=== PATIENT | female | born 1985 | race Caucasian/White ===

== ENCOUNTER → 2016-12-21 14:27 | Observation (INO) ==
--- NOTE | 2016-12-21 13:15 | OB/GYN Progress Note ---
Date of Encounter: 12/21/16 Time of Encounter: 13:09 - Assessment and Plan (1) PIH ( induced hypertension) Current Visit: Yes Status: Acute Elevated blood pressure: 150s/90s x 2, clinically asymptomatic, PIH workup negative. Being discharged on Labetalol; appointment scheduled for Monday 12/25 for evaluation and follow-up with OB. Qualifiers: Trimester: third trimester Qualified Code(s): O13.3 - Gestational [ -induced] hypertension without significant proteinuria, third trimester Subjective - Subjective Principal diagnosis: PIH Evaluation Interval history: Kenia Mendoza, 30 y/o, , at 38+1, presents to labor and delivery for induced hypertension evaluation. Patient does have history of hypertension prior to but while , patient does not have elevated blood pressure; today is her first elevated reading during . 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 Pt is GBS positive. Blood type - O positive. Antepartum ROS: movement normal, no loss of fluid, no vaginal bleeding Objective - Exam FHR: auscultation normal, category 1 Auscultation: bilateral: normal Abdomen: Present: gravid Uterus: Absent: tenderness Attestation: My signature below is to certify that this patient is under my care and that I have had a [id number] encounter with this patient. Kade Lara CNM
[2016-12-21 13:23] LABS: Basophils % 0.3 %; Eosinophils # 0.1 K/mcL (0.0-0.6); Eosinophils % 0.8 %; Hematocrit 34.7 % (35.3-44.9); Immature Granulocytes % 0.4 % (0-4); Lymphocytes # 2.5 K/mcL (0.6-4.6); Lymphocytes % 24.4 %; Mean Corpuscular HGB Conc 31.7 g/dL (31.6-35.5); Mean Corpuscular Hemoglobin 24.8 pg (28.0-33.3); Mean Corpuscular Volume 78.2 fL (83.0-100.0); Mean Platelet Volume 12.7 fL (9.4-12.4); Monocytes % 9.8 %; Neutrophils # 6.5 K/mcL (1.6-8.9); Platelet Count 219 K/mcL (140-400); Red Blood Count 4.44 M/mcL (3.82-4.97); Red Cell Distribution Width 15.2 % (11.5-14.5); Segmented Neutrophils % 64.3 %
[2016-12-21 13:33] LABS: Amphetamine Screen,Urine Negative ng/mL (Cutoff=1000); Barbiturate Screen,Urine Negative ng/mL (Cutoff=200); Benzodiazepines Screen,Urine Negative ng/mL (Cutoff=200); Cannabinoid Screen,Urine Negative ng/mL (Cutoff = 50); Cocaine Screen,Urine Negative ng/mL (Cutoff= 300); Creatinine,Urine 39 mg/dL; Opiate Screen,Urine Negative ng/mL (Cutoff=300); Phencyclidine Screen,Urine Negative ng/mL (Cutoff=25); Protein/Creatinine Ratio,Urine 0.18 mg/mg (0-0.20)
[2016-12-21 13:36] LABS: Alanine Aminotransferase 37 Units/L (0-55); Aspartate Amino Transferase 20 Units/L (5-34); BUN/Creatinine Ratio 11 (6-26); Blood Urea Nitrogen 7 mg/dL (7-20); Lactate Dehydrogenase 163 Units/L (159-327); Uric Acid 5.5 mg/dL (2.6-6.0); eGFR For African Americans > 60 (> 60); eGFR For Non-African Americans > 60 (> 60)
== END | disposition home or self-care (01) ==
LOC: 1NENULAB
PROVIDERS: ADMIT Obstetrics & Gynecology; ATTEND Obstetrics & Gynecology

== ENCOUNTER 2016-12-26 05:58 | Inpatient (IN) ==
[2016-12-26] MEDS ORDERED: Famotidine 20 MG/2 ML VIAL IVP PRN (06:04)
[2016-12-26] MEDS ORDERED: Naloxone 0.4 MG/ML INJ IVP PRN (06:04)
[2016-12-26] MEDS ORDERED: miSOPROStol 100 MCG TABLET PO PRN (06:07)
[2016-12-26] MEDS ORDERED: Penicillin G Potassium 5,000,000 UNIT in D5% in Water (Mini-Bag+) 100 ML IVPB ONE (06:07)
[2016-12-26] MEDS ORDERED: Ringers Solution, Lactated 1,000 ML IVC SCH (06:15)
[2016-12-26] MEDS ORDERED: D5% in 0.45% NACL 1,000 ML IVC SCH (06:15)
[2016-12-26 06:52] LABS: Basophils % 0.4 %; Eosinophils # 0.1 K/mcL (0.0-0.6); Eosinophils % 0.8 %; Hematocrit 38.1 % (35.3-44.9); Hemoglobin 11.9 g/dL (11.5-15.4); Immature Granulocytes % 0.3 % (0-4); Lymphocytes # 1.9 K/mcL (0.6-4.6); Lymphocytes % 21.2 %; Mean Corpuscular HGB Conc 31.2 g/dL (31.6-35.5); Mean Corpuscular Hemoglobin 24.9 pg (28.0-33.3); Mean Corpuscular Volume 79.7 fL (83.0-100.0); Mean Platelet Volume 12.6 fL (9.4-12.4); Monocytes # 0.7 K/mcL (0.0-1.3); Monocytes % 7.9 %; Neutrophils # 6.3 K/mcL (1.6-8.9); Platelet Count 208 K/mcL (140-400); Red Blood Count 4.78 M/mcL (3.82-4.97); Red Cell Distribution Width 15.1 % (11.5-14.5); Segmented Neutrophils % 69.4 %
--- NOTE | 2016-12-26 06:54 | OB/GYN History & Physical ---
Date of Encounter: 12/26/16 Time of Encounter: 06:51 Assessment and Plan (1) 38 weeks gestation of Current visit: Yes Status: Acute (2) High risk , antepartum Current visit: Yes Status: Acute (3) LGA (large for gestational age) fetus affecting management of mother Current visit: Yes Status: Acute Qualifiers: Fetus number: single or unspecified fetus Trimester: third trimester Qualified Code(s): O36.63X0 - Maternal care for excessive growth, third trimester, not applicable or unspecified (4) Two vessel umbilical cord in [place] , antepartum Current visit: Yes Status: Acute (5) Chronic hypertension affecting Current visit: Yes Status: Acute (6) Gestational diabetes Current visit: No Status: Acute Qualifiers: Gestational diabetes mellitus control: diet-controlled Trimester: third trimester Qualified Code(s): O24.410 - Gestational diabetes mellitus in , diet controlled (7) Obesity affecting in third trimester Current visit: No Status: Chronic History of Present Illness Chief complaint: IOL HPI: Ms. Mendoza is a 31-year-old at 38 weeks and 6 days for induction of labor due to multiple risk factors including two-vessel umbilical cord, chronic hypertension on labetalol, short interval between pregnancies, obesity with a BMI of 45, group B strep carrier, gestational diabetes not diagnosed until 34 weeks due to noncompliant with testing, LGA with fundal height of 42 cm. An ultrasound performed 2 weeks ago had normal amniotic fluid and growth was in the 83%, 7 lbs. 14 oz. The patient reports that the fetus is active and she denies any loss of fluid or vaginal bleeding. She reports having intervals of strong cramping that she has had of and on. She has not had any regular contractions that she has felt. She has been very nauseous with vomiting. She is very anxious about this delivery. She reports that her blood sugars have all been in the normal range since her last visit except one reading which was a fasting of 97. Her states that she doesn't check her blood sugars She denies any blurry vision, CP, SOB, fevers, or chills. She plans on breast feeding. She had a NST 12/25 with Category 2 tracings and variables.BPP 8 GBS + Blood Type: O+ Rubella Immune Hep B Non-Reactive Varicella Immune Past Med Surg Social Fam HX - Past Medical History Medical history: GERD, hypertension Psychiatric history: depression - Past Surgical History Surgical History: other - Social History Smoking Status: Never smoker Smokeless Tobacco Status: No Alcohol use: none Drug use: none - Family History Mother Adopted: No Hx Family Cardiac Disorders: No Hx Family Respiratory Disorders: No Hx Family Cancer: Yes (ovarian) Hx Family GI Disorders: No Hx Family Endocrine Disorder: No Hx Family Neuromuscular Disorders: No Hx Family Neurologic Disorders: Yes (CVA) Hx Family HEENT Disorders: No Hx Family Autoimmune Disorders: No Hx Family Reproductive Disorders: No Hx Family Psychosocial Disorders: No Hx Family Medical Disorders: No Obstetrical History - Pregnancies : 4 Medications and Allergies Vit/FA 1 each PO DAILY tablet 01/05/16 [Rx] Ferrous Sulfate 325 mg PO DAILY 12/21/16 [History] Labetalol [Trandate] 200 mg PO BID #60 tablet 12/21/16 [Rx] Zofran ODT 8 mg SL Q4-6H PRN 12/21/16 [History] 3 Allergy/AdvReac Type Severity Reaction Status Date / Time metoclopramide [From Reglan] Allergy Anaphylaxis Verified 06/24/15 14:29 Review of System OB - Constitutional Constitutional ROS IM: no chills, no fever(s), no headache(s) Results Result Diagrams: 12/26/16 06:43 All other labs normal. - VTE Reasons for not Prescribing Prophylaxis: Treatment not Indicated - Low risk for VTE - Attending Attestation I examined this patient and my medical decision-making was reviewed with the Resident Physician. I agree with the documented findings, disposition and treatment plan as described except to the extent set forth below. Please see H+ P from eCW visit 12/25/16
[2016-12-26] MEDS ORDERED: Ondansetron 4 MG/2 ML VIAL IVP PRN ×2 (07:17→13:46)
--- NOTE | 2016-12-26 09:07 | OB Labor Progress Note ---
Date of Encounter: 12/26/16 Time of Encounter: 09:04 Labor Progress Note - Subjective Subjective: The patient has been given Cytotec, 25 g her first dose. heart rate tracing has had some accelerations as well as a few small variables. The patient is aware that she may need to have a if there is persistent and recurrent variables. She reports that she has contractions but they are not uncomfortable. She denies any vaginal bleeding or loss of fluid - Vital Signs Vital Signs: Afebrile, vital signs stable - Cervix Cervix: 4/70/-2, vtx - Heart Tones Heart Tones: 130s to 140s baseline, CAT 1 - [place]: Irregular every 5-8 minutes - Interventions Interventions: 38 week 6 day IUP with multiple comorbidities for induction of labor - Plan Plan: Induction of labor starting with 25 mics of by mouth Cytotec. Patient is aware that she has had some variable decelerations that have been short and small and that she is high risk for needing a . She is understanding of this and wishes to proceed with this before it is an emergency if necessary. She is also wanting her tubes tied for permanent sterilization. What sugar this morning on fingerstick at bedside is 140
[2016-12-26] MEDS ORDERED: *HR* FentaNYL (PF) 100 MCG/2 ML VIAL ONE (09:26)
[2016-12-26] MEDS ORDERED: *HR* Morphine Sulfate/PF 5 MG/10 ML AMPUL ONE (09:26)
[2016-12-26] MEDS ORDERED: EPHEDrine 50 MG/ML VIAL ONE (09:27)
[2016-12-26] MEDS ORDERED: Ondansetron 4 MG/2 ML VIAL ONE (09:27)
[2016-12-26] MEDS ORDERED: *HR* Oxytocin 10 UNIT/ML VIAL IM ONE (09:27)
--- NOTE | 2016-12-26 09:30 | Anesthesia Evaluation PreOp ---
Date of Encounter: 12/26/16 Time of Encounter: 09:28 - Past History Planned Operation: Cardiac History: HTN, Arrhythmia (H/O SVTG) Pulmonary History: Asthma QUALITY PROCESS AUDITOR History: Denies Any Significant HX Other Medical History: Diabetes Type II (gestational), GERD, Other (obesity BMI= 43.5) Anesthesia History: No Prior Anesthetic Complications, Past Anesthesia : Yes (, IUP 38+6 weeks) Alcohol Use: none Drug use: none Medications and Allergies Vit/FA 1 each PO DAILY tablet 01/05/16 [Rx] Ferrous Sulfate 325 mg PO DAILY 12/21/16 [History] Labetalol [Trandate] 200 mg PO BID #60 tablet 12/21/16 [Rx] Zofran ODT 8 mg SL Q4-6H PRN 12/21/16 [History] 3 Allergy/AdvReac Type Severity Reaction Status Date / Time metoclopramide [From Reglan] Allergy Anaphylaxis Verified 06/24/15 14:29 - Meds/Allergy Pre-op Review Medications Reviewed: Yes Allergies Reviewed: Yes Beta Blockers on Current Med List: Yes If Beta Blockers taken, Date/Time (Last Dose taken): 12/21/2016 Anesthesia Results - Labs 12/26/16 06:43 Anesthesia Exam 3 Temp BP Pulse Resp Height: 5'7''/1.7 m Weight: 277 lbs/126 kg NPO (# of Hours): 3.5 Pain Scale: 0 Pain Scale Used: Numeric (1 - 10) - HEENT Pupil (Motor): EOMI Mallampati: II Teeth: Normal Oral Opening: Greater than 3 - QUALITY PROCESS AUDITOR LOC: Oriented QUALITY PROCESS AUDITOR Motor: Normal RUE, Normal LUE, Normal RLE, Normal LLE, Normal Face QUALITY PROCESS AUDITOR Sensory: Normal: RUE, LUE, RLE, LLE, Face - Cardiac Rhythm: Regular Murmur: None - Pulmonary Breath Sounds: bilateral Clear Respiratory Effort: Symmetrical Anesthesia Assess/Plan ASA Score: 3 Modified Barronett Scale for Level of Consciousness: Cooperative, oriented, and tranquil Anesthetic Plan: Regional Monitoring Plan: Standard Monitors Recovery Plan: PACU
[2016-12-26] MEDS ORDERED: MetroNIDAZOLE 500 MG/100 ML 500 MG/100 ML BAG IVPB ONE (09:31)
[2016-12-26] MEDS ORDERED: CeFAZolin Pre 3,000 MG/100 ML 3,000 MG/100 ML BAG IVPB ONE (09:33)
--- NOTE | 2016-12-26 09:42 | OB Labor Progress Note ---
Date of Encounter: 12/26/16 Time of Encounter: 09:40 Labor Progress Note - Subjective Subjective: The patient reports that the contractions are starting to be fairly strong after the Cytotec - Vital Signs Vital Signs: Afebrile, vital signs stable - Cervix Cervix: 4/70/-2 - Heart Tones Heart Tones: 140s to 150s baseline, CAT 2. There was a over a minute long variable to the 70s. Now return to baseline - [place]: Contractions every 2-4 minutes - Interventions Interventions: 38 week 6 day IUP with multiple comorbidities with nonreassuring heart rate tracing. Patient has undesired fertility. - Plan Plan: Anesthesia notified of pending need for a section. The patient would rather go for a before distant emergency. She does state she wants her tubes tied. She has given informed consent for primary and a tubal ligation.
[2016-12-26] MEDS ORDERED: Penicillin G Potassium 2,500,000 UNIT in D5% in Water 100 ML IVPB SCH (10:00)
[2016-12-26] MEDS ORDERED: Ringers Solution, Lactated 1,000 ML ONE (10:00)
[2016-12-26] MEDS ORDERED: *HR* HYDROmorphone (PF) 1 MG/ML SYRINGE IVP PRN ×2 (10:21→12:39)
[2016-12-26] MEDS ORDERED: Acetaminophen IV 1,000 MG/100 ML INFUS..BTL IVPB ONE (10:22)
[2016-12-26 11:10] LABS: Amphetamine Screen,Urine Negative ng/mL (Cutoff=1000); Barbiturate Screen,Urine Negative ng/mL (Cutoff=200); Benzodiazepines Screen,Urine Negative ng/mL (Cutoff=200); Cannabinoid Screen,Urine Negative ng/mL (Cutoff = 50); Cocaine Screen,Urine Negative ng/mL (Cutoff= 300); Opiate Screen,Urine Negative ng/mL (Cutoff=300); Phencyclidine Screen,Urine Negative ng/mL (Cutoff=25)
[2016-12-26] MEDS ORDERED: *HR* Phenylephrine 10 MG/ML VIAL ONE (11:19)
--- NOTE | 2016-12-26 11:33 | OB/GYN Procedure Note ---
Section - Date of procedure: 12/26/16 Preop diagnosis: category 2 FHT tracing, desires sterilization Post-op diagnosis: same (Thick meconium, nuchal cord x2 and around waist, true knot x2) Procedure: section, primary low transverse, bilateral tubal ligation Surgeon: Galina Padilla Estimated blood loss (cc): 500 Anesthesiologist: Jason Pablo Site Specialist: Lino Warren Anesthesia Type: Spinal section complications: none Disposition: L&D Recovery Room Specimens: Placenta, Cord segment, Cord blood, Right tube segment, Left tube segment - Infant (s) A Delivery Date: 12/26/16 Infant Delivery Time: 10:24 Presentation: vertex Position: JOVITA Route of delivery: other Gender: Male Viability: Viable Pounds: 8 Ounces: 2 Gram Weight: 3.675 kg at 1 minute: 8 at 5 minutes: 9 Specimens collected: cord blood Placenta: spontaneous, uterine exploration Cord: nuchal cord (x2), true knot (x2), 2 umbilical vessels, nuchal reduced - Narrative Narrative: The patient was taken to the operating room and spinal anesthesia was given and tested to be adequate for abdominal and pelvic surgery. She was prepped and draped in the usual sterile fashion. Timeout was completed. A Pfannenstiel skin incision was made and sharply dissected down to the fascia. The fascia was incised in the midline and extended bilaterally. 2 straight Milton clamps were placed on the inferior fascial edge and the fascia was bluntly and sharply dissected away from the rectus muscles. This was repeated superiorly. The rectus muscles were bluntly dissected. Peritoneum was bluntly entered and then extended superiorly and inferiorly confirming there were no anterior adhesions. The Bladder blade was placed to protect the bladder. Vesicouterine peritoneum was incised and reflected inferiorly and the bladder blade was replaced to protect the bladder. A low transverse incision was then made through the lower uterine segment down to the amnion. This was bluntly extended bilaterally and then extended on each side with bandage scissors in a U fashion. The amnion was bluntly entered. Thick meconium was identified. This was followed by the vertex delivery of a viable and vigorous male weighing 8# 2oz with Apgars of 8/9. was placed on the maternal abdomen. The infant was bulb suctioned on the operating field. The cord was clamped and cut after a delay. Infant was handed to the nursery care team. The placenta was delivered spontaneous and intact then the uterine cavity was digitally palpated and wiped clean with a moist lap sponge. There were no placental remnants identified. Clamps were placed on the uterine angles and the uterine incision was closed using 0 Vicryl suture in a running, locking fashion. A second imbricating layer completed the uterine closure with 0 Vicryl suture. Good hemostasis achieved after a [id number] suture was placed in the midline. Attention was then placed on the fallopian tubes. The tubes and ovaries appeared grossly normal bilaterally. The left fallopian tube was grasped with a Margaret clamp and O-Plain suture was used to doubly ligate a loop of tube. The loop of tube was then excised and sent to pathology. Good hemostasis is noted at the tubal lumens. This was repeated for the patient's right side. Again good hemostasis noted at the tubal lumens. The uterus was then examined and noted to be hemostatic. The pelvis was then irrigated with a copious amount of sterile water. And again good hemostasis was identified. The peritoneal edges and rectus muscles were then examined and good hemostasis achieved. The fascia was then closed using an 0 PDS loop in a running nonlocking fashion. Subcutaneous tissue was irrigated with sterile water, good hemostasis was achieved. Subcutaneous layer was closed with 3-0 Monocryl in a running nonlocking fashion. The skin was then closed using and 4-0 Monocryl in a running subcuticular fashion. The incision was then reinforced with benzoin and Steri- Strips. Good hemostasis was noted. A Loyda dressing was placed. Estimated blood loss was 500cc. The Sosa was noted to be draining clear yellow urine at the end of the procedure. All sponge and instrument counts are correct at the end of the procedure. The patient was taken to the recovery room in stable condition.
[2016-12-26] MEDS ORDERED: *HR* Morphine 2 MG/ML SYRINGE IVP PRN (12:39)
--- NOTE | 2016-12-26 12:39 | Anesthesia Evaluation Post Op ---
Date of Encounter: 12/26/16 Time of Encounter: 12:38 - Lungs Lungs: Clear Ascult./Percussion - Airway Airway: Non-obstructed - Cardiovascular Regular Rate, Baseline Rhythm - Mental Status Mental Status: Alert & Oriented, Answers Appropriately - Pain Pain Scale: 2 Pain Scale used: Numeric (1 - 10) - Nausea Vomiting Nausea Vomiting: Not Present - Hydration Hydration: Ice chips, Sosa catheter - Discharge PostOp Status: Transfer Patient to floor
[2016-12-26] MEDS ORDERED: Sennosides 8.6 MG TABLET PO PRN (13:46)
[2016-12-26] MEDS ORDERED: Rho Immune Globulin 1,500 UNIT SYRINGE IM ONE (13:46)
[2016-12-26] MEDS ORDERED: Simethicone 80 MG TAB.CHEW PO PRN (13:46)
[2016-12-26] MEDS ORDERED: Oxytocin 20 units/ LR 1000 mL 20 UNIT/1,000 ML BAG IVC SCH (13:46)
[2016-12-26] MEDS: Ibuprofen 600 MG TABLET PO SCH ×2 (15:39→23:32)
[2016-12-26] MEDS: *HR* OxyCODONE/APAP 5/325 TABLET PO PRN (16:55)
[2016-12-27] MEDS: *HR* OxyCODONE/APAP 5/325 TABLET PO PRN ×4 (02:13→19:48)
[2016-12-27 06:12] LABS: Basophils % 0.4 %; Eosinophils # 0.1 K/mcL (0.0-0.6); Eosinophils % 0.5 %; Hematocrit 30.9 % (35.3-44.9); Immature Granulocytes % 0.3 % (0-4); Lymphocytes % 17.9 %; Mean Corpuscular HGB Conc 32.4 g/dL (31.6-35.5); Mean Corpuscular Hemoglobin 25.7 pg (28.0-33.3); Mean Corpuscular Volume 79.4 fL (83.0-100.0); Mean Platelet Volume 12.2 fL (9.4-12.4); Monocytes # 0.9 K/mcL (0.0-1.3); Monocytes % 8.2 %; Neutrophils # 8.2 K/mcL (1.6-8.9); Platelet Count 183 K/mcL (140-400); Red Blood Count 3.89 M/mcL (3.82-4.97); Red Cell Distribution Width 15.3 % (11.5-14.5); Segmented Neutrophils % 72.7 %
[2016-12-27] MEDS: Prenatal Vit/FA 1 EACH TABLET PO SCH (08:35)
--- NOTE | 2016-12-27 09:35 | OB/GYN Progress Note ---
Date of Encounter: 12/27/16 Time of Encounter: 09:33 - Assessment and Plan (1) Status post section Current Visit: Yes Status: Acute Routine post-op, care. Anticipate discharge tomorrow. (2) Breast feeding status of mother Current Visit: Yes Status: Acute support as needed. (3) Chronic hypertension affecting Current Visit: Yes Status: Acute Labetalol as ordered. Routine vital signs. (4) Gestational diabetes Current Visit: No Status: Acute Continue 2 hr post-prandial blood sugars. Schedule 2 hr GTT at visit. Qualifiers: Gestational diabetes mellitus control: diet-controlled Trimester: third trimester Qualified Code(s): O24.410 - Gestational diabetes mellitus in , diet controlled Subjective - Subjective Principal diagnosis: Status post primary section for Category II tracing. Interval history: Pt sitting up in bed. Pain controlled with prescribed medication. Patient encouraged to keep pain meds on a routine schedule to control her pain. She is interested in being discharged tomorrow. Patient reports: appetite normal, voiding normally, pain well controlled : doing well, nursing well Objective - Vital Signs Latest vital signs: Vital Signs Temp Pulse Resp BP Pulse Ox 12/27/16 07:46 98.2 F 80 16 106/69 12/27/16 02:20 97.6 F 88 14 119/77 95 12/27/16 00:00 97.7 F 88 16 114/73 96 12/26/16 21:00 117/73 12/26/16 19:36 98.8 F 84 14 150/96 98 12/26/16 16:40 98.4 F 90 12 129/87 97 12/26/16 15:52 98.2 F 95 12 142/84 97 12/26/16 15:40 98.2 F 95 12 142/84 97 12/26/16 14:41 97.9 F 88 12 143/82 96 12/26/16 14:12 98.5 F 88 12 131/82 97 12/26/16 13:40 97.4 F L 86 12 113/70 98 Intake and Output 12/26/16 12/27/16 12/27/16 23:59 07:59 15:59 Intake Total 500 / 500 700 / 700 Output Total 300 / 300 620 / 620 Balance 200 / 200 80 / 80 Intake: Oral 500 / 500 700 / 700 Output: Catheter 300 / 300 620 / 620 Other: Stool Characteristics Normal for Patient Normal for Patient Weight 123.559 kg Blood Glucose* 106 Patient Weight 12/27/16 23:59 Weight 123.559 kg - Exam Lungs: bilateral: normal Chest: Normal S1, Normal S2 Extremities: Present: normal Abdomen: Present: normal appearance, soft Incision: Present: dressed (CECELIA dressing in place) Uterus: Present: normal, firm Fundal Height: 1 (U/1) - Labs Labs: Laboratory Results - last 24 hr 12/26/16 12/26/16 12/26/16 06:43 08:29 23:13 WBC RBC Hgb Hct MCV MCH MCHC RDW Plt Count MPV Immature Gran % Seg Neutrophils % Lymphocytes % Monocytes % Eosinophils % Basophils % Neutrophils # Lymphocytes # Monocytes # Eosinophils # Basophils # POC Glucose 140 H 106 H Urine Opiates Screen Negative Ur Barbiturates Screen Negative Ur Phencyclidine Scrn Negative Ur Amphetamines Screen Negative U Benzodiazepines Scrn Negative Urine Cocaine Screen Negative U Marijuana (THC) Screen Negative 12/27/16 06:03 WBC 11.3 H RBC 3.89 Hgb 10.0 L D Hct 30.9 L MCV 79.4 L MCH 25.7 L MCHC 32.4 RDW 15.3 H Plt Count 183 MPV 12.2 Immature Gran % 0.3 Seg Neutrophils % 72.7 Lymphocytes % 17.9 Monocytes % 8.2 Eosinophils % 0.5 Basophils % 0.4 Neutrophils # 8.2 Lymphocytes # 2.0 Monocytes # 0.9 Eosinophils # 0.1 Basophils # 0.0 POC Glucose Urine Opiates Screen Ur Barbiturates Screen Ur Phencyclidine Scrn Ur Amphetamines Screen U Benzodiazepines Scrn Urine Cocaine Screen U Marijuana (THC) Screen
[2016-12-27] MEDS: Famotidine 20 MG TABLET PO SCH ×2 (10:28→19:48)
[2016-12-27] MEDS: Ibuprofen 600 MG TABLET PO SCH (19:48)
[2016-12-28] MEDS: Ibuprofen 600 MG TABLET PO SCH ×2 (02:14→08:24)
[2016-12-28] MEDS: *HR* OxyCODONE/APAP 5/325 TABLET PO PRN (02:15)
[2016-12-28 08:19] VITALS: BP 133/91
[2016-12-28] MEDS: Prenatal Vit/FA 1 EACH TABLET PO SCH (08:23)
[2016-12-28] MEDS: Famotidine 20 MG TABLET PO SCH (08:24)
--- NOTE | 2016-12-28 11:13 | Discharge Summary ---
Date of Encounter: 12/28/16 Time of Encounter: 11:11 - Discharge Diagnosis (1) Breast feeding status of mother Priority: Secondary Status: Acute (2) Chronic hypertension affecting Priority: Secondary Status: Acute Comments: Pt has BP cuff and labetalol at home. (3) Status post section Priority: Primary Status: Acute Comments: Pt meeting all milestones. (4) Gestational diabetes Priority: Secondary Status: Acute Comments: Pt to have 2 hour GTT in 6 weeks. Qualifiers: Gestational diabetes mellitus control: diet-controlled Trimester: third trimester Qualified Code(s): O24.410 - Gestational diabetes mellitus in , diet controlled (5) Obesity affecting in third trimester Priority: Secondary Status: Chronic Comments: CECELIA dressing intact - Discharge Medications Prescriptions: OxyCODONE/APAP 5/325 [Percocet 5/325 MG] 1 each PO Q4HR PRN #30 tablet PRN Reason: Moderate pain 4-6 Ibuprofen [Motrin] 600 mg PO Q6HR #30 tablet Breast Pump [BREAST PUMP] 1 each .ROUTE AD #1 each Docusate [Colace] 100 mg PO BID #30 capsule Home Medications: Vit/FA 1 each PO DAILY tablet 01/05/16 [Rx] Labetalol [Trandate] 200 mg PO BID #60 tablet 12/21/16 [Rx] Breast Pump [BREAST PUMP] 1 each .ROUTE AD #1 each 12/28/16 [Rx] Docusate [Colace] 100 mg PO BID #30 capsule 12/28/16 [Rx] Famotidine [Pepcid] 40 mg PO BID tablet 12/28/16 [Rx] Ibuprofen [Motrin] 600 mg PO Q6HR #30 tablet 12/28/16 [Rx] OxyCODONE/APAP 5/325 [Percocet 5/325 MG] 1 each PO Q4HR PRN #30 tablet 12/28/16 [Rx] Simethicone [Gas-X] 80 mg PO TID PRN tab.chew 12/28/16 [Rx] Allergies/Adverse Reactions: 3 Allergy/AdvReac Type Severity Reaction Status Date / Time metoclopramide [From Reglan] Allergy Anaphylaxis Verified 06/24/15 14:29 Data Procedures and tests throughout hospitalization: Laboratory Tests 12/26/16 12/26/16 12/26/16 06:43 06:43 08:29 WBC 9.1 RBC 4.78 Hgb 11.9 Hct 38.1 MCV 79.7 L MCH 24.9 L MCHC 31.2 L RDW 15.1 H Plt Count 208 MPV 12.6 H Immature Gran % 0.3 Seg Neutrophils % 69.4 Lymphocytes % 21.2 Monocytes % 7.9 Eosinophils % 0.8 Basophils % 0.4 Neutrophils # 6.3 Lymphocytes # 1.9 Monocytes # 0.7 Eosinophils # 0.1 Basophils # 0.0 POC Glucose 140 H Urine Opiates Screen Negative Ur Barbiturates Screen Negative Ur Phencyclidine Scrn Negative Ur Amphetamines Screen Negative U Benzodiazepines Scrn Negative Urine Cocaine Screen Negative U Marijuana (THC) Screen Negative 12/26/16 12/27/16 12/27/16 23:13 06:03 11:30 WBC 11.3 H RBC 3.89 Hgb 10.0 L D Hct 30.9 L MCV 79.4 L MCH 25.7 L MCHC 32.4 RDW 15.3 H Plt Count 183 MPV 12.2 Immature Gran % 0.3 Seg Neutrophils % 72.7 Lymphocytes % 17.9 Monocytes % 8.2 Eosinophils % 0.5 Basophils % 0.4 Neutrophils # 8.2 Lymphocytes # 2.0 Monocytes # 0.9 Eosinophils # 0.1 Basophils # 0.0 POC Glucose 106 H 126 H Urine Opiates Screen Ur Barbiturates Screen Ur Phencyclidine Scrn Ur Amphetamines Screen U Benzodiazepines Scrn Urine Cocaine Screen U Marijuana (THC) Screen Labs on day of discharge: Labs from last 24 hours 12/27/16 11:30 POC Glucose 126 H Date of admission: 12/26/16 05:58 Primary care physician: Selin Ceballos CNP Discharging clinician: Allison Pugh Anticipated date of discharge: 12/28/16 - Patient Status Disposition: Home, Self-Care Condition: Good Functional capacity at discharge: independent ambulation Overall status at discharge: patient is progressing back to baseline - Discharge Instructions Follow Up With: Selin Ceballos CNP [Primary Care Provider] - Galina Padilla MD [Partnered Physician] - - Diet and Activity Activity: increase activity as tolerated Hospital Course Reason for admission: induction of labor Delivery: section Episiotomy: none Laceration: none Other procedures: tubal ligation complications: none Discharge diagnosis: IUP at term delivered baby: male Hospital course: - Date of procedure: 12/26/16 Preop diagnosis: category 2 FHT tracing, desires sterilization Post-op diagnosis: same (Thick meconium, nuchal cord x2 and around waist, true knot x2) Procedure: section, primary low transverse, bilateral tubal ligation Surgeon: Galina Padilla Estimated blood loss (cc): 500 Anesthesiologist: Jason Pablo [employer] Manager: Lino Warren Anesthesia Type: Spinal section complications: none Disposition: L&D Recovery Room Specimens: Placenta, Cord segment, Cord blood, Right tube segment, Left tube segment - Infant (s) Infant A Infant Delivery Date: 12/26/16 Infant Delivery Time: 10:24 Presentation: vertex Position: JOVITA Route of delivery: other Gender: Male Viability: Viable Pounds: 8 Ounces: 2 Gram Weight: 3.675 kg at 1 minute: 8 at 5 minutes: 9 Specimens collected: cord blood Placenta: spontaneous, uterine exploration Cord: nuchal cord (x2), true knot (x2), 2 umbilical vessels, nuchal reduced Time Attestation: Total time spent providing and/or coordinating discharge services: Time Spent: Less than 30 minutes - VTE Reasons for not Prescribing Prophylaxis: Treatment not Indicated - Low risk for VTE Documentation of Mechanical Device: Intermittent pneumatic compression device Exam - Constitutional Vitals: Temp Pulse Resp BP Pulse Ox 97.5 F L 92 16 133/91 100 12/28/16 08:18 12/28/16 08:18 12/28/16 08:18 12/28/16 08:18 12/28/16 08:18 General appearance IM: A&O X 3, morbidly obese, no acute distress - Respiratory Respiratory exam: Present: CTAB - Cardiovascular Cardiovascular exam IM: Present: RRR - GI/Abdominal GI/Abdominal exam IM: soft, no peritoneal signs Incision: dressed (CECELIA with scant old blood) - Uterine Tone: Firm - Extremities Exam Extremities exam IM: Present: pedal edema (2+ bilaterally) - Neurological Exam Neurological exam: normal gait, oriented X3 - Psychiatric Additional comments: reports good mood - Other Additional findings: O[facility] reviewed
== END 2016-12-28 11:30 | disposition home or self-care (01) | DRG 765 ==
LOC: 1NENULAB 05:58 → 1NENUOBS 13:43
PROVIDERS: ADMIT Obstetrics & Gynecology; ATTEND Obstetrics & Gynecology